=== PATIENT | female | born 1990 | race African-American/Black ===

== ENCOUNTER 2017-01-01 11:20 | Emergency (ER) | payer OTHER ==
[~2017-01-01] VITALS: Ht 170.2 cm; Wt 90.0 kg
[~2017-01-01 11:20] MED LIST: NORC5TAB PO
[2017-01-01 11:22] VITALS: BP 123/76; PULSE 91; RESP 12; TEMP 98.2; O2SAT 100
[2017-01-01] MEDS ORDERED: CYCL1TAB29 PO (13:52)
[2017-01-01] MEDS ORDERED: MELO-1 PO (13:52)
--- NOTE | 2017-01-01 13:52 | PD ---
HPI Chief Complaint: Pain: Acute or Chronic Time Seen by Provider: 13:39 Travel History International Travel<30 days: No Contact w/Intl Traveler<30days: No Traveled to known affect area: No History of Present Illness HPI Patient is a 26-year-old female presented to emergency department for evaluation of right knee pain. Patient states pain is ongoing for approximately 1 month she denies any injury or trauma. 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 Patient denies any swelling, redness, warmth, fevers or chills. PFSH Past Medical History Medical History: Denies Significant Hx Diminished Hearing: No ?: Not LMP: 12/24/16 : 4 Para: 4 Social History Alcohol Use: No Tobacco Use: No Substance Use: No Allergies-Medications (Allergen,Severity, Reaction): Coded Allergies: No Known Allergies (Unverified , 11/16/16) Reported Meds & Prescriptions Reported Meds & Active Scripts Active [place] (Hydrocodone-Acetaminophen) 5-325 mg Tab 1 Tab PO Q4H PRN Review of Systems Except as stated in HPI: all other systems reviewed are Neg Musculoskeletal: Positive: Myalgias, Arthralgias, Pain Physical Exam Narrative GENERAL: Well-nourished, well-developed patient. SKIN: Warm and dry. HEAD: Normocephalic. EYES: No scleral icterus. No injection or drainage. NECK: Supple, trachea midline. No JVD or lymphadenopathy. CARDIOVASCULAR: Regular rate and rhythm without murmurs, gallops, or rubs. RESPIRATORY: Breath sounds equal bilaterally. No accessory muscle use. GASTROINTESTINAL: Abdomen soft, non-tender, nondistended. MUSCULOSKELETAL: No cyanosis, or edema. No deformities noted. Full range of motion and right knee, positive pedal pulses, brisk less than 3 second capillary refill. Negative anterior drawer. BACK: Nontender without obvious deformity. No CVA tenderness. Data Data Last Documented VS Vital Signs Date Time Temp Pulse Resp B/P Pulse Ox O2 Delivery O2 Flow Rate FiO2 01/01/17 11:22 98.2 91 12 123/76 100 Room Air MDM Medical Decision Making Medical Screen Exam Complete: Yes Emergency Medical Condition: Yes Interpretation(s) Vital Signs Date Time Temp Pulse Resp B/P Pulse Ox O2 Delivery O2 Flow Rate FiO2 01/01/17 11:22 98.2 91 12 123/76 100 Room Air Differential Diagnosis Sprain versus strain versus arthritis versus other Narrative Course Patient is a 26-year-old female presenting to the emergency department for evaluation of right knee pain that started approximately 1 month ago. Patient has not tried any [id number] medications. She has not followed up with a primary care provider. She had no injury or trauma. Physical examination is unremarkable. At this time patient will be treated conservatively him and she is encouraged to take medications as directed. She is encouraged to alternate heat and ice to affected area as needed. She is encouraged to follow up with her primary care provider for ongoing evaluation and management. Patient was encouraged to return to emergency department for any new or worsening symptoms. Patient verbalized understanding of these instructions. Patient is stable for discharge. Diagnosis Primary Impression: Knee pain Qualified Code: M25.561 - Right knee pain, unspecified chronicity Referrals: Primary Care Physician Patient Instructions: Arthritis (ED), General Instructions, Knee Exercises (GEN ), Knee Pain (ED) Additional Instructions: Follow-up with her primary doctor Take medications as directed Alternate heat and ice to the affected area, continue range of motion exercises Return to emergency department for any new or worsening symptoms Med/Other Pt SpecificInfo: Prescription(s) given Scripts Cyclobenzaprine (Flexeril)10 Mg Tab10 Mg PO TID 7 Days Ref 0 Prov:Edwige Cohen 01/01/17 Meloxicam 15 Mg Tab15 Mg PO DAILY #30 TAB Ref 0 Prov:Edwige Cohen 01/01/17 Disposition: 01 DISCHARGE HOME Condition: Stable Edwige Cohen Jan 01, 2017 13:52
== END 2017-01-01 14:18 | disposition home or self-care (01) ==
LOC: NEPB 11:20
DX: M25.561 Pain in right knee (principal)
CPT/HCPCS: 99283